=== PATIENT | female | born 1995 | race Two or more races ===

== ENCOUNTER 2019-06-13 11:22 | Emergency (ER) | payer SELFPAY ==
[~2019-06-13] VITALS: Ht 160 cm; Wt 5.4 kg
[2019-06-13 11:27] VITALS: Ht 160 cm; Wt 5.4 kg
[2019-06-13 13:06] VITALS: BP 114/70
== END 2019-06-13 13:06 | disposition home or self-care (01) ==
LOC: ED 11:22
DX: O20.0 Threatened abortion (principal)